=== PATIENT | female | born 1985 | race Caucasian/White ===

== ENCOUNTER 2019-02-01 18:14 | Outpatient (CLI) | payer SELFPAY, MEDICAID | END 2019-02-01 20:18 | disposition home or self-care (01) | LOC: OBT 18:14 → L-D 18:16 → OBT 20:18 | DX: O24.419 Gestational diabetes mellitus in pregnancy, unspecified control (principal); O36.8330 Maternal care for abnormalities of the fetal heart rate or rhythm, third trimester, not applicable or unspecified; Z3A.35 35 weeks gestation of pregnancy | CPT/HCPCS: 76818 ==